=== PATIENT | male | born 1940 | race Caucasian/White ===

== ENCOUNTER 2016-12-08 12:56 | Emergency (ER) | payer MEDICARE ==
[~2016-12-08] VITALS: Ht 154.9 cm; Wt 63.0 kg
[~2016-12-08 12:56] MED LIST: INSU100V5 SQ-INSULIN
[2016-12-08] MEDS ORDERED: LISI-170 PO (13:04)
[2016-12-08 14:07] LABS: BLOOD UREA NITROGEN 22 mg/dL (7-18)
[2016-12-08] MEDS ORDERED: ACETAMINOPHEN 325 MG TABLET ONE (15:38)
[2016-12-08 15:49] VITALS: BP 172/68
[2016-12-08] MEDS ORDERED: ACETAMINOPHEN 325 MG TABLET PO ONE (16:00)
== END 2016-12-08 15:53 | disposition home or self-care (01) ==
LOC: ED 14:50
DX: R51 Headache (principal); I10 Essential (primary) hypertension; Z79.4 Long term (current) use of insulin; Z88.8 Allergy status to other drugs, medicaments and biological substances
CPT/HCPCS: 36415; 70450; 71010; 80048; 82040; 85025; 93005